=== PATIENT | female | born 1955 | race African-American/Black ===

== ENCOUNTER → 2016-12-18 | Outpatient (CLI) | payer OTHER ==
[2016-12-18 15:08] LABS: BASOPHIL% 0.3 % (0-2.5); EOSINOPHIL# 0.2 X10e3 (0-0.7); EOSINOPHIL% 1.7 % (0.0-7.0); HEMATOCRIT 35.1 % (35.0-45.0); HEMOGLOBIN 11.2 gm/dL (12.0-16.0); LYMPHOCYTE# 3.3 X10e3 (1.0-3.5); LYMPHOCYTE% 36.9 % (17.0-45.0); MEAN CORPUSCULAR HEMOGLOBIN 28.5 PG (28-34); MEAN PLATELET VOLUME 10.3 FL (6.5-11.5); MONOCYTE# 0.5 X10e3 (0-1.0); MONOCYTE% 5.4 % (3.0-12.0); NEUTROPHIL% 55.7 % (40-75); PLATELET COUNT 207 X10e3 (140-420); RED BLOOD COUNT 3.94 X10e (3.90-5.30); RED CELL DISTRIBUTION WIDTH 14.8 % (11.0-15.5)
[2016-12-18 15:09] LABS: URINE APPEARANCE CLEAR; URINE BILIRUBIN NEG (NEG); URINE BLOOD NEG (NEG); URINE COLOR YELLOW; URINE GLUCOSE NEG (NEG); URINE KETONE TRACE (NEG); URINE LEUKOCYTE ESTERASE TRACE (NEG); URINE NITRATE NEG (NEG); URINE PROTEIN 3+ (NEG); URINE SPECIFIC GRAVITY 1.024 (1.003-1.035)
[2016-12-18 15:11] LABS: URINE BACTERIA AUWI 1+ (NEGATIVE); URINE SQUAMOUS EPITHELIAL CELL FEW /[HPF]
[2016-12-18 15:14] LABS: URINE SOURCE CLEAN CATCH
[2016-12-18 15:15] LABS: DIFF IND NO
[2016-12-18 15:42] LABS: CREATININE,RANDOM URINE 242 mg/dL; TOTAL PROTEIN,RANDOM URINE 445 mg/dl (<10)
[2016-12-18 15:43] LABS: BUN/CREATININE RATIO 12.77; CALCIUM SERUM 9.4 mg/dL (8.4-10.2); CREATININE SERUM 1.8 mg/dL (0.6-1.4); GLOM FILT RATE Estimated 35.3 mL/min (>60); POTASSIUM 4.2 mmol/L (3.5-5.1)
== END | disposition home or self-care (01) ==
LOC: CLAB 14:41
PROVIDERS: Internal Medicine Nephrology
DX: N18.3 Chronic kidney disease, stage 3 (moderate) (principal)
CPT/HCPCS: 80048; 81003; 82570; 84156; 85025

== ENCOUNTER → 2017-01-25 | Outpatient (CLI) | payer OTHER ==
--- NOTE | ~2017-01-25 | CR181 ---
[facility] A Service of [facility] RADIOLOGY TEXT RESULTS PATIENT: DEION CERVANTES LOCATION: [facility] : 59 UNIT #: [id number] AGE: [address]: MIKI GARCIA APRN SEX: F ORDER DR: [id number] [facility] [address] [place], [place] [address] [id number] O MR#: [id number] Acc #: [id number] NAME: DEION CERVANTES : 1955 SEX: F STUDY DATE/TIME: 01/25/2017 14:06 UNIT: [facility] ROOM: STUDY DESCRIPTION: CR Lumbar Spine 2 or 3 Views Attending Physician: Miki Garcia Referring Physician: Miki Garcia Ordering Physician: Miki Garcia Aprn Primary Care Physician: Miki Garcia MEDICAL IMAGING REPORT This report is preliminary unless electronic signature is present EXAM Lumbar series, 01/25/2017 INDICATION 61-year-old female with low back pain for 6 weeks. No known injury. TECHNIQUE 3 views of the lumbar spine. Correlation is made with CT 08/15/2010 FINDINGS Vertebral body heights are maintained. No acute fracture. Alignment preserved. There is degenerative disc disease at L4-5 and L5-S1. Facet arthropathy at L3-4 through L5-S1 is at least moderate in degree. There is atherosclerotic change of the aorta. IMPRESSION Degenerative change in the lumbar spine. No acute fracture or malalignment. Dictated by... Clarke Gan M.D. THIS IS AN ELECTRONICALLY VERIFIED REPORT Clarke Gan M.D. at 01/26/2017 3:10 PM TRI/debbie TD: 01/25/2017 21:45 JOB #: [id number] MEDICAL IMAGING REPORT [facility] A Service [facility] RADIOLOGY TEXT RESULTS PATIENT: DEION CERVANTES LOCATION: [facility] : 59 UNIT #: [id number] AGE: [address]: MIKI GARCIA APRN SEX: F ORDER DR: Page 1 of 1 COPY
== END | disposition home or self-care (01) ==
LOC: CRAD 13:19
DX: M54.9 Dorsalgia, unspecified (principal); M47.896 Other spondylosis, lumbar region
CPT/HCPCS: 72100

== ENCOUNTER → 2017-01-25 | Outpatient (CLI) | payer OTHER ==
[2017-01-25 14:36] LABS: CHOLESTEROL 138 mg/dL (0-200); HDL CHOLESTEROL 42 mg/dL (35-95); LDL CHOLESTEROL 80 mg/dL ([, -130]); LDL/HDL RATIO 2 RATIO (0-4); TRIGLYCERIDES 82 mg/dL (10-160)
[2017-01-27 04:59] LABS: MICROALB UR (PNL) 335.4 mg/dL (***)
== END | disposition home or self-care (01) ==
LOC: CLAB 13:16
PROVIDERS: Internal Medicine Endocrinology, Diabetes & Metabolism
DX: E11.22 Type 2 diabetes mellitus with diabetic chronic kidney disease (principal); N18.3 Chronic kidney disease, stage 3 (moderate); E11.65 Type 2 diabetes mellitus with hyperglycemia; E78.5 Hyperlipidemia, unspecified
CPT/HCPCS: 36415; 80061; 82043; 82570; 83036